=== PATIENT | male | born 1975 | race Caucasian/White ===

== ENCOUNTER 2020-08-18 09:38 | Emergency (ER) | payer MEDICAID ==
[~2020-08-18] VITALS: Ht 165.1 cm; Wt 72.6 kg
[2020-08-18 09:46] VITALS: BP 120/75
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
--- NOTE | 2020-08-18 09:52 | NUR ---
PT SEEN BY
[2020-08-18] MEDS ORDERED: CEPHALEXIN MONOHYDRATE 500 MG CAPSULE PO ONE ×2 (09:54→10:00)
[2020-08-18] MEDS ORDERED: SULFAMETH/TRIMETH 800/160 MG 1 UDTAB TABLET ONE (09:55)
[2020-08-18] MEDS ORDERED: SULFAMETH/TRIMETH 800/160 MG 1 UDTAB TABLET PO ONE (10:00)
== END 2020-08-18 11:41 | disposition home or self-care (01) ==
LOC: ER 09:43
DX: S86.811A Strain of other muscle(s) and tendon(s) at lower leg level, right leg, initial encounter (principal); L03.115 Cellulitis of right lower limb; X58.XXXA Exposure to other specified factors, initial encounter; Y93.89 Activity, other specified; Y92.89 Other specified places as the place of occurrence of the external cause; Y99.8 Other external cause status
CPT/HCPCS: 93971-TC

== ENCOUNTER 2020-09-02 18:05 | Emergency (ER) | payer MEDICAID ==
[~2020-09-02] VITALS: Ht 165.1 cm; Wt 68.0 kg
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
[2020-09-02 18:50] LABS: BASOPHILS # (AUTO) 0.1 /CMM (0.0-0.2); BASOPHILS % (AUTO) 0.7 % (0.0-2.0); EOSINOPHILS % (AUTO) 0.4 % (0.0-6.0); HEMATOCRIT 38 % (39-51); HEMOGLOBIN 12.7 g/dL (13.5-17.5); LYMPHOCYTES # (AUTO) 2.4 /CMM (0.8-4.8); LYMPHOCYTES % (AUTO) 25.9 % (20.0-44.0); MEAN CORPUSCULAR HGB CONC 34 g/dl (31.0-36.0); MEAN CORPUSCULAR VOLUME 91 fL (80-96); MONOCYTES # (AUTO) 0.8 /CMM (0.1-1.30); MONOCYTES % (AUTO) 8.9 % (2.0-12.0); NEUTROPHILS % (AUTO) 64.1 % (43.0-81.0); PLATELET COUNT (AUTO) 204 /CMM (150-450); RED BLOOD CELL COUNT(AUTO) 4.11 MIL/uL (4.5-6.0); WHITE BLOOD COUNT (AUTO) 9.3 K/uL (4.3-11.0)
[2020-09-02 19:05] LABS: ALANINE AMINOTRANSFERASE 79 U/L (12-78); ALBUMIN 3.7 g/dL (3.4-5.0); ALCOHOL, BLOOD < 3 mg/dL (0-0); ALKALINE PHOSPHATASE 64 U/L (46-116); ASPARTATE AMINOTRANSFERASE 53 U/L (15-37); BILIRUBIN,DIRECT 0.1 mg/dL (0.0-0.2); BILIRUBIN,TOTAL 0.1 mg/dL (0.2-1.0); CALCIUM, SERUM 8.5 mg/dL (8.5-10.1); CARBON DIOXIDE 34 mmol/L (21-32); CHLORIDE 99 mmol/L (98-107); GLUCOSE 88 mg/dL (74-106); POTASSIUM 4.4 mmol/L (3.5-5.1); SODIUM SERUM 135 mmol/L (136-145); UREA NITROGEN, BLOOD 21 mg/dL (7-18)
[2020-09-02 19:08] LABS: ACETAMINOPHEN < 1 ug/ml (10-30)
--- NOTE | 2020-09-02 20:26 | NUR ---
URINE SAMPLE COLLECTED AND SENT TO LAB.
[2020-09-02 20:34] LABS: BILIRUBIN,URINE Negative (NEGATIVE); BLOOD, URINE Negative Ery/uL (NEGATIVE); COLOR,URINE YELLOW (YELLOW); LEUKOCYTE ESTERASE ,URINE Negative (NEGATIVE); NITRITE, URINE Negative (NEGATIVE); PROTEIN,URINE Negative (NEGATIVE); UGLUCOSE Negative (NEGATIVE); UROBILINOGEN,URINE 0.2 EU/dL (0.2)
--- NOTE | 2020-09-02 20:57 | NUR ---
CLINICAL FAXED TO [facility] FOR VOLUNTARY PSYCH ADMISSION.
--- NOTE | 2020-09-02 22:05 | NUR ---
PT ACCEPTED AT [facility] INTAKE ACCEPTING MD CESPEDES PT WILL GOT O UNIT 2 PHONE NUMBER FOR REPORT
--- NOTE | 2020-09-02 22:10 | NUR ---
TRANSPORT CALLED ([facility]) ETA 0000.
--- NOTE | 2020-09-02 22:37 | NUR ---
REPROT GIVEN TO AMANDA PALMER FOR PAOLO
--- NOTE | 2020-09-02 22:50 | NUR ---
[facility] ETA 30 MINUTES
--- NOTE | 2020-09-02 23:26 | NUR ---
TRANSPORT AT BEDSIDE REPORT GIVEN TO EMT TRANSPORT
--- NOTE | 2020-09-02 23:28 | NUR ---
REPORT GIVEN TO TRANSPORT. PT TRANSFERED TO [facility].
[2020-09-02 23:29] VITALS: BP 116/71
== END 2020-09-02 23:29 ==
LOC: ER 18:05
DX: R45.851 Suicidal ideations (principal); F29 Unspecified psychosis not due to a substance or known physiological condition; Z20.828 Contact with and (suspected) exposure to other viral communicable diseases; Z59.0 Homelessness; Z79.899 Other long term (current) drug therapy; R03.0 Elevated blood-pressure reading, without diagnosis of hypertension
CPT/HCPCS: 36415; 80048; 80076; 80299; 80307; 80320; 81001; 85025; 87426; 99285; C9803; G0480

== ENCOUNTER 2021-03-24 19:30 | Emergency (ER) | payer MEDICAID, OTHER ==
[~2021-03-24] VITALS: Ht 170.2 cm; Wt 63.5 kg
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
[2021-03-24] MEDS ORDERED: OLANZAPINE 5 MG TABLET ONE ×2 (19:42→20:02)
--- NOTE | 2021-03-24 19:45 | NUR ---
PHLEB AT BED SIDE TO DRAW BLOOD
[2021-03-24 19:49] LABS: BASOPHILS # (AUTO) 0.1 /CMM (0.0-0.2); BASOPHILS % (AUTO) 0.8 % (0.0-2.0); EOSINOPHILS % (AUTO) 0.4 % (0.0-6.0); HEMATOCRIT 40 % (39-51); HEMOGLOBIN 13.4 g/dL (13.5-17.5); LYMPHOCYTES # (AUTO) 3.5 /CMM (0.8-4.8); LYMPHOCYTES % (AUTO) 48.5 % (20.0-44.0); MEAN CORPUSCULAR HGB CONC 34 g/dl (31.0-36.0); MEAN CORPUSCULAR VOLUME 90 fL (80-96); MONOCYTES # (AUTO) 0.8 /CMM (0.1-1.30); MONOCYTES % (AUTO) 10.7 % (2.0-12.0); NEUTROPHILS # (AUTO) 2.9 /CMM (1.8-8.9); NEUTROPHILS % (AUTO) 39.6 % (43.0-81.0); PLATELET COUNT (AUTO) 248 /CMM (150-450); RED BLOOD CELL COUNT(AUTO) 4.42 MIL/uL (4.5-6.0); WHITE BLOOD COUNT (AUTO) 7.3 K/uL (4.3-11.0)
[2021-03-24] MEDS ORDERED: OLANZAPINE 5 MG TABLET PO ONE (20:00)
--- NOTE | 2021-03-24 20:05 | NUR ---
Ruthie rodriguez in [facility] - 03/25/21 at 0515 by RISHABH PT REFUSING FAUSTINOA
[2021-03-24 20:24] LABS: CARBON DIOXIDE 28 mmol/L (21-32); CHLORIDE 103 mmol/L (98-107); CREATININE 1.1 mg/dL (0.6-1.3); GLUCOSE 79 mg/dL (74-106); POTASSIUM 3.6 mmol/L (3.5-5.1); SODIUM SERUM 140 mmol/L (136-145); UREA NITROGEN, BLOOD 12 mg/dL (7-18)
[2021-03-24 20:30] LABS: ALANINE AMINOTRANSFERASE 60 U/L (12-78); ALBUMIN 3.8 g/dL (3.4-5.0); ALKALINE PHOSPHATASE 83 U/L (46-116); ASPARTATE AMINOTRANSFERASE 40 U/L (15-37); BILIRUBIN,DIRECT 0.2 mg/dL (0.0-0.2); BILIRUBIN,TOTAL 0.5 mg/dL (0.2-1.0); TOTAL PROTEIN, SERUM 8.3 g/dL (6.4-8.2)
[2021-03-24 20:31] LABS: ACETAMINOPHEN < 0 ug/ml (10-30); ALCOHOL, BLOOD < 3 mg/dL (0-0)
[2021-03-24 22:37] LABS: BILIRUBIN,URINE Negative (NEGATIVE); COLOR,URINE YELLOW (YELLOW); LEUKOCYTE ESTERASE ,URINE Negative (NEGATIVE); NITRITE, URINE Negative (NEGATIVE); PROTEIN,URINE Negative (NEGATIVE); UGLUCOSE Negative (NEGATIVE); UROBILINOGEN,URINE 0.2 EU/dL (0.2)
[2021-03-25 05:15] VITALS: BP 135/91
--- NOTE | 2021-03-25 05:15 | NUR ---
Patient given written and verbal discharge instructions. Patient verbalizes understanding of instructions. Patient is ambulatory with steady gait. Refuses offer of halfway placement. Patient given list of available shelters in surrounding area.
--- NOTE | 2021-03-25 05:15 | NUR ---
Patient discharged to home in stable condition. Written and verbal after care instructions given. Patient verbalizes understanding of instruction.
== END 2021-03-25 05:15 | disposition home or self-care (01) ==
LOC: ER 19:32
DX: F29 Unspecified psychosis not due to a substance or known physiological condition (principal); F15.10 Other stimulant abuse, uncomplicated; D64.9 Anemia, unspecified; F31.9 Bipolar disorder, unspecified; I10 Essential (primary) hypertension
CPT/HCPCS: 36415; 80048-TC; 80076-TC; 85025-TC; G0480

== ENCOUNTER 2021-06-27 11:05 | Emergency (ER) | payer OTHER ==
[~2021-06-27] VITALS: Ht 167.6 cm; Wt 65.8 kg
--- NOTE | 2021-06-27 11:12 | NUR ---
SEEN AND EXAMINED BY .
--- NOTE | 2021-06-27 11:20 | NUR ---
ER PHLEB AT BEDSIDE FOR BLOOD DRAW
[2021-06-27 11:28] LABS: BASOPHILS # (AUTO) 0.1 K/uL (0.0-0.2); BASOPHILS % (AUTO) 0.6 % (0.0-2.0); EOSINOPHILS % (AUTO) 0.6 % (0.0-6.0); HEMATOCRIT 41 % (39-51); HEMOGLOBIN 13.9 g/dL (13.5-17.5); LYMPHOCYTES # (AUTO) 3.8 K/uL (0.8-4.8); LYMPHOCYTES % (AUTO) 40.8 % (20.0-44.0); MEAN CORPUSCULAR HGB CONC 34 g/dl (31.0-36.0); MEAN CORPUSCULAR VOLUME 90 fL (80-96); MONOCYTES # (AUTO) 1.2 K/uL (0.1-1.30); MONOCYTES % (AUTO) 12.5 % (2.0-12.0); NEUTROPHILS # (AUTO) 4.2 K/uL (1.8-8.9); NEUTROPHILS % (AUTO) 45.5 % (43.0-81.0); PLATELET COUNT (AUTO) 228 K/uL (150-450); RED BLOOD CELL COUNT(AUTO) 4.53 MIL/uL (4.5-6.0); WHITE BLOOD COUNT (AUTO) 9.3 K/uL (4.3-11.0)
[2021-06-27 11:36] LABS: CARBON DIOXIDE 31 mmol/L (21-32); CHLORIDE 105 mmol/L (98-107); CREATININE 1.4 mg/dL (0.6-1.3); GLUCOSE 108 mg/dL (74-106); SODIUM SERUM 144 mmol/L (136-145); UREA NITROGEN, BLOOD 26 mg/dL (7-18)
[2021-06-27] MEDS ORDERED: diphenhydrAMINE HCL 50 MG/ML VIAL ONE (11:36)
[2021-06-27] MEDS ORDERED: HALOPERIDOL LACTATE INJ 5 MG/ML VIAL ONE (11:36)
[2021-06-27] MEDS ORDERED: LORAZEPAM INJ 2 MG/ML VIAL ONE (11:37)
[2021-06-27 11:41] LABS: ALANINE AMINOTRANSFERASE 119 U/L (12-78); ALBUMIN 4.3 g/dL (3.4-5.0); ALCOHOL, BLOOD < 3 mg/dL (0-0); ALKALINE PHOSPHATASE 74 U/L (46-116); ASPARTATE AMINOTRANSFERASE 94 U/L (15-37); BILIRUBIN,DIRECT 0.2 mg/dL (0.0-0.2); BILIRUBIN,TOTAL 0.9 mg/dL (0.2-1.0); TOTAL PROTEIN, SERUM 8.6 g/dL (6.4-8.2)
--- NOTE | 2021-06-27 11:49 | NUR ---
PT AGITATED, ERMD AWARE. MEDICATED ORDERED. SEE EMAR.
[2021-06-27] MEDS ORDERED: LORAZEPAM INJ 2 MG/ML VIAL IM ONE (12:00)
[2021-06-27] MEDS ORDERED: HALOPERIDOL LACTATE INJ 5 MG/ML VIAL IM ONE (12:00)
[2021-06-27] MEDS ORDERED: diphenhydrAMINE HCL 50 MG/ML VIAL IM ONE (12:00)
--- NOTE | 2021-06-27 12:09 | NUR ---
pt straight cath ua sent to lab . resting quietly vss
--- NOTE | 2021-06-27 15:23 | NUR ---
P T SLEEPING IN BED. EASILY AROUSABLE. ON MONITOR W/ STABLE VITALS. SITTER AT BEDSIDE.
--- NOTE | 2021-06-27 18:52 | NUR ---
Patient given written and verbal discharge instructions. Patient verbalizes understanding of instructions. Patient is ambulatory with steady gait. Ref[place] offer of [place] [facility]. Patient given list of available shelters in surrounding area.
[2021-06-27 18:53] VITALS: BP 119/68
== END 2021-06-27 18:53 | disposition home or self-care (01) ==
LOC: ER 11:06
DX: F15.129 Other stimulant abuse with intoxication, unspecified (principal); I10 Essential (primary) hypertension; F31.9 Bipolar disorder, unspecified; Z59.0 Homelessness
CPT/HCPCS: 36415; 80048; 80076; 80307; 80320; 85025; 96372 ×2; 99285; J1200; J1630; J2060; G0480

== ENCOUNTER 2021-12-31 21:58 | Inpatient (IN) | payer OTHER ==
[~2021-12-31] VITALS: Ht 165.1 cm; Wt 68.9 kg
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
[2021-12-31] MEDS ORDERED: TDAP [DIPH/PERTUSSIS/TET] 0.5 ML VIAL IM ONE ×2 (22:30→23:01)
--- NOTE | 2021-12-31 23:00 | NUR ---
EMT @ BEDSIDE FOR EKG.
--- NOTE | 2021-12-31 23:03 | NUR ---
BLOOD COLLECTED AND SENT TO LAB
[2021-12-31 23:18] LABS: BASOPHILS % (AUTO) 0.4 % (0.0-2.0); EOSINOPHILS % (AUTO) 0.8 % (0.0-6.0); HEMATOCRIT 38 % (39-51); HEMOGLOBIN 12.6 g/dL (13.5-17.5); LYMPHOCYTES # (AUTO) 1.7 K/uL (0.8-4.8); LYMPHOCYTES % (AUTO) 20.7 % (20.0-44.0); MEAN CORPUSCULAR HGB CONC 33 g/dl (31.0-36.0); MEAN CORPUSCULAR VOLUME 91 fL (80-96); MONOCYTES # (AUTO) 0.6 K/uL (0.1-1.30); MONOCYTES % (AUTO) 7.5 % (2.0-12.0); NEUTROPHILS # (AUTO) 5.8 K/uL (1.8-8.9); NEUTROPHILS % (AUTO) 70.6 % (43.0-81.0); PLATELET COUNT (AUTO) 212 K/uL (150-450); RED BLOOD CELL COUNT(AUTO) 4.15 MIL/uL (4.5-6.0); WHITE BLOOD COUNT (AUTO) 8.2 K/uL (4.3-11.0)
--- NOTE | 2021-12-31 23:23 | NUR ---
COVID SWAB DONE AND SENT TO LAB
[2021-12-31 23:49] LABS: CALCIUM, SERUM 9.5 mg/dL (8.5-10.1); CREATININE 1.4 mg/dL (0.6-1.3); POTASSIUM 4.2 mmol/L (3.5-5.1)
[2021-12-31] MEDS ORDERED: LIDOCAINE 2% 20 ML MDV ONE (23:57)
[2021-12-31] MEDS ORDERED: LIDOCAINE HCL/MPF 1% 30 ML VIAL IJ ONE (23:57)
[2022-01-01] MEDS ORDERED: ONDANSETRON HCL/PF 4 MG/2 ML VIAL IVP PRN (01:00)
[2022-01-01] MEDS ORDERED: ZOLPIDEM TARTRATE 5 MG TABLET PO PRN (01:00)
[2022-01-01] MEDS ORDERED: MORPHINE SULFATE INJ 2 MG/ML DISP.SYRIN IV PRN (01:00)
[2022-01-01] MEDS ORDERED: MAG HYDROX/AL HYDROX/SIMETH 30 ML UDC PO PRN (01:00)
[2022-01-01] MEDS ORDERED: HYDROCODONE/APAP 5/325MG TABLET PO PRN (01:00)
[2022-01-01] MEDS ORDERED: MAGNESIUM HYDROXIDE 30 ML UDC PO PRN (01:00)
[2022-01-01] MEDS ORDERED: Z GUARD REMEDY 4 OZ OINT TP PRN (01:00)
--- NOTE | 2022-01-01 02:17 | NUR ---
report given to rasheeda
--- NOTE | 2022-01-01 03:25 | NUR ---
patient transferred to 116 via acls
[2022-01-01 04:00] VITALS: BP 138/96
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
[2022-01-01] MEDS: IV 1/2NS 1000 ML 1,000 ML IV PRN ×2 (04:17→18:44)
--- NOTE | 2022-01-01 07:30 | NUR ---
RN OPENING NOTE PATIENT RECEIVED IN BED, RESTING. PATIENT ON 2L O2 NC WITH NO SIGNS OF LABORED BREATHING AT THIS TIME. LEFT AC 18G IV IN PLACE RUNNING 1/2 NS AT 75CC/HR. NO SIGNS OF ACUTE DISTRESS NOTED AT THIS TIME. BED LOCKED AND IN LOWEST POSITION, CALL LIGHT WITHIN REACH, 3 SIDE RAILS UP. WILL CONTINUE TO MONITOR.
[2022-01-01] MEDS: PANTOPRAZOLE 40 MG TABLET.DR PO SCH (07:56)
[2022-01-01 08:00] VITALS: BP 129/90
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
[2022-01-01] MEDS: ACETAMINOPHEN 325 MG TABLET PO PRN (08:14)
[2022-01-01] MEDS: IBUPROFEN 600 MG TABLET PO PRN (10:39)
[2022-01-01 11:30] LABS: BASOPHILS % (AUTO) 0.6 % (0.0-2.0); EOSINOPHILS % (AUTO) 0.9 % (0.0-6.0); HEMATOCRIT 36 % (39-51); HEMOGLOBIN 12.2 g/dL (13.5-17.5); LYMPHOCYTES # (AUTO) 2.3 K/uL (0.8-4.8); LYMPHOCYTES % (AUTO) 32.5 % (20.0-44.0); MEAN CORPUSCULAR HGB CONC 34 g/dl (31.0-36.0); MEAN CORPUSCULAR VOLUME 91 fL (80-96); MONOCYTES # (AUTO) 0.5 K/uL (0.1-1.30); MONOCYTES % (AUTO) 7.4 % (2.0-12.0); NEUTROPHILS # (AUTO) 4.1 K/uL (1.8-8.9); NEUTROPHILS % (AUTO) 58.6 % (43.0-81.0); PLATELET COUNT (AUTO) 186 K/uL (150-450); RED BLOOD CELL COUNT(AUTO) 3.95 MIL/uL (4.5-6.0)
[2022-01-01 11:48] LABS: CALCIUM, SERUM 8.1 mg/dL (8.5-10.1); POTASSIUM 3.9 mmol/L (3.5-5.1)
[2022-01-01 12:00] VITALS: BP 140/93
[2022-01-01 16:00] VITALS: BP 132/86
--- NOTE | 2022-01-01 19:00 | NUR ---
RN NOTE RECEIVED PATIENT IN BED, AO X 3-4 WITH EPISODES OF CONFUSION, NOTED WITH HISTORY OF BIPOLAR DISORDER AND PSYCHOSIS, AND NEEDS REORIENTATION AT TIMES. IN NO ACUTE DISTRESS, RESPIRATIONS EVEN AND UNLABORED, SATURATION AT 100% ON ROOM AIR, WITH STANDBY 02/NC AT BEDSIDE NEEDED. NOTED IV LINE AT LAC 18G, PATENT AND FLUSHING WELL, NO S/S OF INFECTION OR INFILTRATION NOTED WITH 1/2 NS AT 75 ML/HR. SAFETY MEASURES AND ISOLATION PRECAUTION IN PLACE, CALL LIGHT WITHIN REACH OF PATIENT, BED ON LOWEST POSITION, SIDE RAILS UP X 2. WILL CONTINUE MONITOR AND RE-ASSESS.
--- NOTE | 2022-01-01 19:01 | NUR ---
RN CLOSING NOTE PATIENT REMAINS IN BED, RESTING. PATIENT ON 2L O2 NC WITH NO SIGNS OF LABORED BREATHING AT THIS TIME. LEFT AC 18G IV IN PLACE RUNNING 1/2 NS AT 75CC/HR. NO SIGNS OF ACUTE DISTRESS NOTED AT THIS TIME. ALL NEEDS ATTENDED DURING SHIFT. BED LOCKED AND IN LOWEST POSITION, CALL LIGHT WITHIN REACH, 3 SIDE RAILS UP. WILL ENDORSE TO SPRAY TECHNICIAN NURSE.
[2022-01-01 20:00] VITALS: BP 131/76
[2022-01-02] VITALS: BP 130/77
[2022-01-02 04:00] VITALS: BP 133/89
[2022-01-02] MEDS: IBUPROFEN 600 MG TABLET PO PRN (04:48)
[2022-01-02 06:56] LABS: BASOPHILS % (AUTO) 0.6 % (0.0-2.0); EOSINOPHILS % (AUTO) 1.3 % (0.0-6.0); HEMATOCRIT 36 % (39-51); LYMPHOCYTES # (AUTO) 2.6 K/uL (0.8-4.8); LYMPHOCYTES % (AUTO) 36.9 % (20.0-44.0); MEAN CORPUSCULAR HGB CONC 34 g/dl (31.0-36.0); MEAN CORPUSCULAR VOLUME 91 fL (80-96); MONOCYTES # (AUTO) 0.6 K/uL (0.1-1.30); NEUTROPHILS # (AUTO) 3.7 K/uL (1.8-8.9); NEUTROPHILS % (AUTO) 52.2 % (43.0-81.0); PLATELET COUNT (AUTO) 178 K/uL (150-450); RED BLOOD CELL COUNT(AUTO) 3.94 MIL/uL (4.5-6.0); WHITE BLOOD COUNT (AUTO) 7.1 K/uL (4.3-11.0)
[2022-01-02 07:11] LABS: CALCIUM, SERUM 8.3 mg/dL (8.5-10.1); CREATININE 0.9 mg/dL (0.6-1.3); MAGNESIUM 1.9 mg/dL (1.8-2.4); PHOSPHORUS 3.1 mg/dL (2.5-4.9); POTASSIUM 4.8 mmol/L (3.5-5.1)
[2022-01-02] MEDS: IV 1/2NS 1000 ML 1,000 ML IV PRN (07:33)
--- NOTE | 2022-01-02 07:36 | NUR ---
RN NOTES RESTING IN BED, EYES CLOSED, ABLE TO BE AWAKENED. NOT IN ACUTE DISTRESS. BREATHING EVEN AND UNLABORED ON ROOM AIR. NO COMPLAINT OF PAIN NOR DISCOMFORT AT THIS TIME. SAFETY MEASURES IN PLACE. WILL CONTINUE TO MONITOR.
[2022-01-02 08:00] VITALS: BP 116/78
[2022-01-02] MEDS: PANTOPRAZOLE 40 MG TABLET.DR PO SCH (08:24)
--- NOTE | 2022-01-02 09:50 | NUR ---
RN NOTES PATIENT SEEN BY DR. DÍAZ TODAY AND MADE AWARE OF PLAN OF CARE.
[2022-01-02 12:00] VITALS: BP 122/71
[2022-01-02] MEDS: ACETAMINOPHEN 325 MG TABLET PO PRN (18:34)
--- NOTE | 2022-01-02 18:50 | NUR ---
RN NOTES CALLED PATIENT'S FAMILY AND LEFT MESSAGE.
--- NOTE | 2022-01-02 19:15 | NUR ---
RN NOTES RECEIVED PATIENT ON BED, AWAKE, A/O X 4, ALERT AND VERBALLY RESPONSIVE, ON NASAL CANULA @ 2LPM. RESPIRATORY EVEN AND UNLABORED, REMAIN AFEBRILE, NO S/S OF DISTRESS NOTED. PATIENT NOTED WITH LAC #18, INTACT IN PLACED, FLUSHED WITH NS. NO INFILTRATION NOTED AT SITE. RUNNING ON 10/17 NS 1L @ 75 ML/HR. ALL SAFETY PRECAUTION PROVIDED, BED IN LOWEST POSITION, LOCKED. CONTINUE TO MONITOR.
--- NOTE | 2022-01-02 19:26 | NUR ---
RN NOTES AMBULATES W/ STEADY GAIT. IVF CONTINUOUS; MEDICATED FOR PAIN PER PT REQUEST. PROVIDED W/ PUDDING FOR SNACK. SAFETY MEASURES MAINTAINED. ENDORSED TO ASSISTANT FIELD HOCKEY COACH RN FOR PAOLO.
[2022-01-02 20:00] VITALS: BP 102/62
[2022-01-03] VITALS: BP 127/84
[2022-01-03 04:00] VITALS: BP 127/84
[2022-01-03] MEDS: IV 1/2NS 1000 ML 1,000 ML IV PRN (06:27)
--- NOTE | 2022-01-03 07:25 | NUR ---
RN OPENING NOTES RECEIVED PATIENT ON BED, AWAKE, A/O X 4, ALERT AND VERBALLY RESPONSIVE, ON NASAL CANULA @ 2LPM. BREATHING EVEN AND UNLABORED, NO S/S OF DISTRESS NOTED. PATIENT NOTED WITH LAC #18, INTACT IN PLACED, FLUSHED WITH NS. NO INFILTRATION NOTED AT SITE. INFUSING ON 10/17 NS 1L @ 75 ML/HR. ALL SAFETY PRECAUTION PROVIDED, BED IN LOWEST POSITION, LOCKED WITH SIDE RAILS UP X 2. CALL LIGHT WITHIN REACH OF PATIENT. WILL CONTINUE TO MONITOR PATIENT ACCORDINGLY.
--- NOTE | 2022-01-03 07:30 | NUR ---
RN NOTES PATIENT REMAIN STABLE THOUGH OUT THE SHIFT. RESPIRATORY EVEN AND UNLABORED, REMAIN AFEBRILE, NO S/S OF DISTRESS NOTED. PATIENT NOTED WITH LAC #18, INTACT IN PLACED, FLUSHED WITH NS. NO INFILTRATION NOTED AT SITE. RUNNING ON 10/17 NS 1L @ 75 ML/HR. ALL DUE MEDS GIVEN ORDERED. ALL SAFETY PRECAUTION PROVIDED, BED IN LOWEST POSITION, LOCKED. CONTINUE TO MONITOR.
[2022-01-03 07:42] LABS: BASOPHILS % (AUTO) 0.6 % (0.0-2.0); EOSINOPHILS % (AUTO) 1.3 % (0.0-6.0); HEMATOCRIT 38 % (39-51); HEMOGLOBIN 12.4 g/dL (13.5-17.5); LYMPHOCYTES # (AUTO) 2.5 K/uL (0.8-4.8); LYMPHOCYTES % (AUTO) 37.9 % (20.0-44.0); MEAN CORPUSCULAR HGB CONC 33 g/dl (31.0-36.0); MEAN CORPUSCULAR VOLUME 91 fL (80-96); MONOCYTES # (AUTO) 0.7 K/uL (0.1-1.30); MONOCYTES % (AUTO) 10.1 % (2.0-12.0); NEUTROPHILS # (AUTO) 3.3 K/uL (1.8-8.9); NEUTROPHILS % (AUTO) 50.1 % (43.0-81.0); PLATELET COUNT (AUTO) 184 K/uL (150-450); RED BLOOD CELL COUNT(AUTO) 4.14 MIL/uL (4.5-6.0); WHITE BLOOD COUNT (AUTO) 6.7 K/uL (4.3-11.0)
[2022-01-03 08:00] VITALS: BP 138/92
[2022-01-03 08:00] LABS: CALCIUM, SERUM 8.5 mg/dL (8.5-10.1); CREATININE 0.8 mg/dL (0.6-1.3); POTASSIUM 4.2 mmol/L (3.5-5.1)
[2022-01-03] MEDS: PANTOPRAZOLE 40 MG TABLET.DR PO SCH (08:07)
--- NOTE | 2022-01-03 08:54 | NUR ---
WOUND CARE CONSULT: PT PRESENTS WITH DRY ABRASIONS TO HEAD, BACK, SHOULDERS AND CLOSED LACERATION TO SCALP, PRESENT ON ADMISSION. PT IS INDEPENDENT WITH BED MOBILITY AND IS CONTINENT. CURRENT JULIO SCORE IS 21. WILL SEE PRN.
[2022-01-03 12:00] VITALS: BP 134/85
--- NOTE | 2022-01-03 15:50 | NUR ---
RN NOTE PATIENT PULLED OUT IV ACCESS. REINSERTED IV ACCESS ON RIGHT AC #20G, SITE INTACT, PATENT AND FLUSHED WITH NS.
[2022-01-03 16:00] VITALS: BP 138/70
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
--- NOTE | 2022-01-03 18:34 | NUR ---
RN CLOSING NOTES PATIENT REMAINS IN STABLE CONDITION. PATIENT IN BED, AWAKE, A/O X 4, ALERT AND VERBALLY RESPONSIVE, ON ROOM AIR TOLERATING WELL. BREATHING EVEN AND UNLABORED, NO S/S OF DISTRESS NOTED. PATIENT NOTED WITH RAC #20, INTACT IN PLACED, FLUSHED WITH NS. NO INFILTRATION NOTED AT SITE. ALL DUE MEDS GIVEN ORDERED. KEPT PATIENT CLEAN, DRY AND COMFORTABLE. ALL NEEDS ATTENDED. ALL SAFETY PRECAUTION PROVIDED, BED IN LOWEST POSITION, LOCKED WITH SIDE RAILS UP X 2. CALL LIGHT WITHIN REACH OF PATIENT. WILL ENDORSE TO ONCOMING NURSE FOR CONTINUITY OF CARE.
[2022-01-03 20:00] VITALS: BP 138/70
[2022-01-04] VITALS: BP 137/95
[2022-01-04 07:00] LABS: BASOPHILS % (AUTO) 0.4 % (0.0-2.0); EOSINOPHILS % (AUTO) 1.8 % (0.0-6.0); HEMATOCRIT 39 % (39-51); HEMOGLOBIN 13.2 g/dL (13.5-17.5); LYMPHOCYTES # (AUTO) 2.7 K/uL (0.8-4.8); LYMPHOCYTES % (AUTO) 36.3 % (20.0-44.0); MEAN CORPUSCULAR HGB CONC 34 g/dl (31.0-36.0); MEAN CORPUSCULAR VOLUME 90 fL (80-96); MONOCYTES # (AUTO) 0.7 K/uL (0.1-1.30); NEUTROPHILS # (AUTO) 3.8 K/uL (1.8-8.9); NEUTROPHILS % (AUTO) 51.5 % (43.0-81.0); PLATELET COUNT (AUTO) 206 K/uL (150-450); RED BLOOD CELL COUNT(AUTO) 4.35 MIL/uL (4.5-6.0); WHITE BLOOD COUNT (AUTO) 7.4 K/uL (4.3-11.0)
--- NOTE | 2022-01-04 07:15 | NUR ---
RN OPENING NOTES RECEIVED PATIENT IN BED, AWAKE, A/O X 4, ALERT AND VERBALLY RESPONSIVE, ON ROOM AIR, TOLERATING WELL. BREATHING EVEN AND UNLABORED, NO S/S OF DISTRESS NOTED. PATIENT NOTED WITH RAC #20, INTACT AND PATENT, FLUSHED WITH NS. NO INFILTRATION NOTED AT SITE. ALL SAFETY PRECAUTION PROVIDED, BED IN LOWEST POSITION, LOCKED WITH SIDE RAILS UP X 2. CALL LIGHT WITHIN REACH OF PATIENT. WILL CONTINUE TO MONITOR PATIENT ACCORDINGLY.
[2022-01-04 07:40] LABS: CALCIUM, SERUM 8.9 mg/dL (8.5-10.1); CREATININE 0.8 mg/dL (0.6-1.3); POTASSIUM 4.2 mmol/L (3.5-5.1)
--- NOTE | 2022-01-04 07:45 | NUR ---
RN CLOSING NOTE PATIENT A/OX4. TOLERATING ROOM AIR. RESPIRATIONS ARE EVEN AND UNLABORED. NO SOB NOTED. AMBULATING IN ROOM WITH NO DISTRESS. NO S/S PAIN NOTED. IV ACCESS MAINTAINED. SINUS RHYTHM ON THE MONITOR. DID HAVE EN EPISODE HR DOWN TO 44. AWOKE PATIENT FROM SLEEP. ASYMPTOMATIC. SAFETY MEASURES IN PLACE. ENDORSED TO ONCOMING SHIFT.
[2022-01-04 08:00] VITALS: BP 131/95
[2022-01-04] MEDS: PANTOPRAZOLE 40 MG TABLET.DR PO SCH (08:04)
--- NOTE | 2022-01-04 14:42 | NUR ---
PATIENT REMOVED HIS OWN IV AND CURSING ON PHONE.SIGNED AMA.EXPLAINED RISK OF LEAVING AMA INCLUDING ,STILL INSISTED TO LEAVE AMA.DR. LARRY GUTIERREZ NOTIFIED.
--- NOTE | 2022-01-04 14:44 | NUR ---
PATIENT LEFT HOSPITAL AMBULATORY ,NO ACUTE DISTRESS INSTRUCTED TO GO BACK TO ER IF SYMPTOMS PERSIST.
[2022-01-04 14:46] VITALS: BP 130/80
== END 2022-01-04 16:07 | disposition left against medical advice (07) | DRG 135 ==
LOC: ER 22:09 → TELE-TD 01-01 01:59 → TELE1 01-01 08:00
PROVIDERS: ADMIT Family Medicine; ATTEND Nurse Practitioner Acute Care
PROC: 0HQ0XZZ Repair Scalp Skin, External Approach (ICD-10-PCS; principal; 2022-01-01)
DX: S27.0XXA Traumatic pneumothorax, initial encounter (principal); N17.0 Acute kidney failure with tubular necrosis; J90 Pleural effusion, not elsewhere classified; S01.01XA Laceration without foreign body of scalp, initial encounter; F15.90 Other stimulant use, unspecified, uncomplicated; J98.11 Atelectasis; F17.200 Nicotine dependence, unspecified, uncomplicated; I10 Essential (primary) hypertension; F31.9 Bipolar disorder, unspecified; Z53.29 Procedure and treatment not carried out because of patient's decision for other reasons; Z59.00 Homelessness unspecified; Y04.2XXA Assault by strike against or bumped into by another person, initial encounter; Y92.9 Unspecified place or not applicable
CPT/HCPCS: 36415; 70450-TC; 70486-TC; 71045-TC; 72125-TC; 80048-TC; 83735-TC; 84100-TC; 85025-TC; 85730-TC; 87081-TC; 90715; C9803; G0378; J3490

== ENCOUNTER 2022-04-05 18:15 | Emergency (ER) | payer OTHER ==
[~2022-04-05] VITALS: Ht 165.1 cm; Wt 68.0 kg
--- NOTE | 2022-04-05 18:40 | NUR ---
COVID SWAB OBTAINED AND SENT TO LAB
--- NOTE | 2022-04-05 18:41 | NUR ---
URINE OBTAINED AND SENT TO LAB
[2022-04-05 19:05] LABS: BILIRUBIN,URINE NEGATIVE (NEGATIVE); COLOR,URINE YELLOW (YELLOW); LEUKOCYTE ESTERASE ,URINE NEGATIVE (NEGATIVE); NITRITE, URINE NEGATIVE (NEGATIVE); PH,URINE 5.5 (5.0-8.0); PROTEIN,URINE NEGATIVE (NEGATIVE); UGLUCOSE NEGATIVE (NEGATIVE); UROBILINOGEN,URINE 0.2 EU/dL (0.2)
[2022-04-05 19:35] LABS: BASOPHILS # (AUTO) 0.1 K/uL (0.0-0.2); HEMATOCRIT 40 % (39-51); HEMOGLOBIN 13.8 g/dL (13.5-17.5); LYMPHOCYTES # (AUTO) 3.3 K/uL (0.8-4.8); LYMPHOCYTES % (AUTO) 45.1 % (20.0-44.0); MEAN CORPUSCULAR HGB CONC 35 g/dl (31.0-36.0); MEAN CORPUSCULAR VOLUME 88 fL (80-96); MONOCYTES # (AUTO) 0.7 K/uL (0.1-1.30); MONOCYTES % (AUTO) 9.5 % (2.0-12.0); NEUTROPHILS # (AUTO) 3.2 K/uL (1.8-8.9); NEUTROPHILS % (AUTO) 43.4 % (43.0-81.0); PLATELET COUNT (AUTO) 241 K/uL (150-450); RED BLOOD CELL COUNT(AUTO) 4.55 MIL/uL (4.5-6.0); WHITE BLOOD COUNT (AUTO) 7.4 K/uL (4.3-11.0)
[2022-04-05 19:39] LABS: CARBON DIOXIDE 32 mmol/L (21-32); CHLORIDE 106 mmol/L (98-107); GLUCOSE 91 mg/dL (74-106); POTASSIUM 4.9 mmol/L (3.5-5.1); SODIUM SERUM 141 mmol/L (136-145); UREA NITROGEN, BLOOD 11 mg/dL (7-18)
[2022-04-05 19:45] LABS: ALANINE AMINOTRANSFERASE 316 U/L (12-78); ALCOHOL, BLOOD < 3 mg/dL (0-0); ALKALINE PHOSPHATASE 97 U/L (46-116); ASPARTATE AMINOTRANSFERASE 122 U/L (15-37); BILIRUBIN,DIRECT 0.1 mg/dL (0.0-0.2); BILIRUBIN,TOTAL 0.3 mg/dL (0.2-1.0); TOTAL PROTEIN, SERUM 8.4 g/dL (6.4-8.2)
[2022-04-05 19:47] LABS: ACETAMINOPHEN < 0 ug/ml (10-30)
--- NOTE | 2022-04-05 20:00 | NUR ---
bibseltoshia c/o feeling depressed, wanting vol psych admit, only to [facility]. pt is a/o x 4, no acute distress noted. pt in er bed 18. will continue to monitor.
--- NOTE | 2022-04-05 20:47 | NUR ---
FACESHEET AND CLINICALS FAXED TO [facility].
--- NOTE | 2022-04-06 01:13 | NUR ---
PER ART AT [facility] INTAKE, PT GOT ACCEPTED AT [facility] UNDER CARE OF DR AGUILAR # FOR REPORT [phone] [phone]
--- NOTE | 2022-04-06 01:30 | NUR ---
pt does not wish to [facility], dose not want to continue treatment, pt is -si/-hi.
[2022-04-06 04:24] VITALS: BP 118/72
== END 2022-04-06 01:30 | disposition home or self-care (01) ==
LOC: ER 18:25
DX: F31.9 Bipolar disorder, unspecified (principal); Z59.01 Sheltered homelessness; I10 Essential (primary) hypertension; Z53.20 Procedure and treatment not carried out because of patient's decision for unspecified reasons
CPT/HCPCS: 36415; 80048; 80076; 80143; 80307; 80320; 81003; 85025; 87426; 99283; C9803; G0480